=== PATIENT | male | born 1990 | race Caucasian/White ===

== ENCOUNTER 2020-12-25 14:15 | Emergency (ER) | payer BC, SELFPAY ==
--- NOTE | 2020-12-25 | ECG_ITS ---
Test Reason : CHEST PAIN Blood Pressure : / mmHG Vent. Rate : 093 BPM Atrial Rate : 093 BPM P-R Int : 152 ms QRS Dur : 086 ms QT Int : 344 ms P-R-T Axes : 066 034 028 degrees QTc Int : 427 ms Normal sinus rhythm Normal ECG No previous ECGs available Referred By: Generic ED Physician Electronically Signed By:CANELO TAFOYA MD
--- NOTE | ~2020-12-25 | CT_ITS ---
EXAMINATION: CT ANGIOGRAM OF THE CHEST WITH AND WITHOUT CONTRAST (CT PULMONARY ANGIOGRAM FOR PE) CLINICAL INFORMATION: Pain on inspiration. Tachycardia. COMPARISON: Chest x-ray earlier today TECHNIQUE: Prior to contrast administration, noncontrast localization images were obtained. Subsequently, multidetector volumetric imaging was performed from the thoracic inlet to below the diaphragms following the administration of 65 mL Omnipaque 350 intravenous contrast. No contrast reaction reported Sagittal, coronal, and MIP oblique sagittal reformatted images were obtained on the CT workstation, uploaded to PACS, and reviewed. This CT examination was performed using dose optimization techniques as appropriate, variously including the following: *Automated exposure control *Adjustment of mA and/or kV according to patient size (this includes techniques or standardized protocols for targeted exams where dose is matched to indication/reason for exam; i.e. extremities or head) *Use of iterative reconstruction technique Total exam dose-length product 392 mGy-cm FINDINGS: The heart is normal in size. There is no pericardial effusion. No pulmonary arterial filling defect to suggest pulmonary embolus. Normal caliber thoracic aorta. No gross mediastinal lymphadenopathy. No enlarged axillary lymph nodes. Central airways are patent. Lungs are well aerated. There is mild lingular and dependent atelectasis. No lobar consolidation is present. No pleural effusion or pneumothorax. No suspicious pulmonary nodules. Visualized portions of the upper abdomen demonstrate a few small gallstones within an otherwise unremarkable appearing gallbladder. A small hiatal hernia is also noted. No acute osseous abnormality. CT/CT angio chest PE protocol IMPRESSION: 1. No pulmonary embolus. 2. No lobar consolidation, pleural effusion or pneumothorax. 3. Cholelithiasis. VTE: negative
--- NOTE | ~2020-12-25 | XR_ITS ---
EXAMINATION: XR CHEST CLINICAL INFORMATION: Chest pain COMPARISON: None TECHNIQUE: 2 views of the chest were obtained. FINDINGS: No significant abnormality is noted involving the heart, lungs, mediastinum, bony thorax or soft tissues. XR/XR chest 2V IMPRESSION: Unremarkable chest exam
[2020-12-25 15:22] VITALS: BP 137/78; PULSE 90; RESP 16; TEMP 36.4; O2SAT 98; BMI 29.4
[2020-12-25] MEDS: Ibuprofen 600 MG TABLET PO (15:28)
[2020-12-25 15:42] LABS: MANUAL DIFF FLAG NO
[2020-12-25 15:49] LABS: Basophils Percent Auto 0.3 % (0-2); Eosinophils Percent Auto 0.3 % (0-4); Hematocrit 44.9 % (42-52); Hemoglobin 15.2 g/dl (14.0-18.0); Imm Gran Abs Auto 0.03 X10*3/uL (0.00-0.03); Imm Gran Pct Auto 0.3 % (0.0-0.4); Lymphocytes Absolute Auto 1.4 X10*3/uL (1.2-4.9); Lymphocytes Percent Auto 13.6 % (20-40); Mean Corpuscular HGB Conc 33.9 g/dl (31.0-36.0); Mean Corpuscular Volume 91.6 fL (80-98); Mean Platelet Volume 10.1 fL (9.4-12.4); Monocytes Absolute Auto 0.8 X10*3/uL (0.1-1.2); Monocytes Percent Auto 7.9 % (2-11); Neutrophils Absolute Auto 7.9 X10*3/uL (2.0-8.3); Neutrophils Percent Auto 77.6 % (45-73); Platelet Count 222 X10*3/uL (160-400); Red Cell Distribution Width 12.2 % (11.0-16.0); White Blood Count 10.2 X10*3/uL (4.8-10.8)
[2020-12-25 16:19] LABS: Anion Gap 14 (12-20); Blood Urea Nitrogen 20 mg/dL (9-16); Calcium 9.7 mg/dL (8.4-10.2); Carbon Dioxide 24 mmol/L (22-29); Chloride 105 mmol/L (96-108); Creatinine Clr Calc Pharmacy 111.4; Estimated Glomerular Filt Rate > 60; Glucose Random 84 mg/dL (60-115); Potassium 4.2 mmol/L (3.3-5.1); Sodium 139 mmol/L (135-145)
[2020-12-25 16:25] LABS: Troponin-I High Sensitivity < 3.5 ng/L (<3.5-35.0)
--- NOTE | 2020-12-25 18:22 | ED_ITS ---
HPI - Chest Pain General Chief Complaint: Chest Pain Stated Complaint: chest pain Source: patient Mode of arrival: ambulatory Limitations: no limitations History of Present Illness HPI narrative: 30-year-old male with no significant past medical history presents with 2 days of left-sided chest pain, pain on inspiration, shortness of breath on exertion, palpitations, diaphoresis with pain radiating from the lowe r portion of the lung up in to the left shoulder. Has not had pain like this in the past, does not report being on any steroids or hormones, has not taken any flights, and denies any clotting factor deficiencies. He does not report any prior illness or vaccine. States that he also becomes diaphoretic when this pain occurs. Over the past few days the pain has gotten worse and worse, to the point where he feels afraid to take a deep breath in. He does not report any dizziness, lightheadedness, abdominal pain, abdominal distention, dysuria, hematuria, nausea, vomiting, diarrhea constipation, or edema. MD complaint: chest pain Onset (ago): day(s) ( To) Timing of current episode: episodic Prior episodes: No Onset: during rest and during exertion Pain location: left chest Pain radiation: left arm and left shoulder Severity: severe Pain scale (0-10): 10 Quality: tightness and aching Exacerbating factors: exertion and inspiration Associated symptoms: diaphoresis, dyspnea and palpitations Treatment prior to arrival: none Risk Factors Coronary artery disease risk factors: none Thoracic aortic dissection risk factors: none Related Data Previous Rx's Medication Instructions Recorded ibuprofen 600 mg PO Q6H PRN #60 tab 12/25/20 oxycodone-acetaminophen [Endocet] 1 tab PO TID PRN #10 tab 12/25/20 Allergies Allergy/AdvReac Type Severity Reaction Status Date / Time Sulfa (Sulfonamide Allergy Unknown RASH Verified 12/25/20 15:21 Antibiotics) (DOESN'T [SULFA (SULFONAMIDE REALLY ANTIBIOTICS)] KNOW) Review of Systems Review of Systems: Constitutional: No Weight loss, No Fever, No Chills, No Night Sweats, No Fatigue, No Malaise ENT/Mouth: No Hearing loss, No Ear Pain, No Nasal Congestion, No Sinus Pain, No Hoarseness, No sore throat, No Rhinorrhea, No Swallowing Difficulty Eyes: No Eye Pain, No Swelling, No Redness, No Foreign Body, No Discharge, No Vision Changes Cardiovascular: positive Chest Pain, positive SOB, positive Dyspnea on Exertion, positive pain on inspiration, No Orthopnea, No Edema, positive Palpitations Respiratory: No Cough, No Sputum, No Wheezing, No Smoke Exposure, No Dyspnea Gastrointestinal: no Nausea, No Vomiting, No Diarrhea, No abdominal Pain, No Hematochezia, No Melena Genitourinary: No irregular bleeding, No Dysuria, No Urinary Frequency, No Hematuria, No Urinary Incontinence, No Urgency, No Flank Pain, No Urinary Flow Changes, No Hesitancy Musculoskeletal: No joint pain, No Myalgias, No Joint Swelling Skin: No Skin Lesions, No rash Neuro: No Weakness, No Numbness, No Paresthesias, No Loss of Consciousness, No Dizziness, No Headache Psych: No Anxiety/Panic, No Depression, No SI/HI/AH/VH Heme/Lymph: No Bruising, No Bleeding,No Lymphadenopathy Endocrine: No Polyuria, No Polydipsia, No Temperature Intolerance Yes all other systems are reviewed and are negative [facility] Past Medical History Attestation statement: The following information was validated with the patient. Source: old records reviewed Medical History No known health problems Social History Social History Alcohol intake: current Alcohol intake frequency: holidays/special occasions only Patient Tobacco Use Status: Never used Tobacco Use of substances other than those prescribed or required for medical reasons: No Advance Directives: No Advance Directives Information Provided: Yes Physical Exam Vital Signs: Vital Signs: Last Vital Signs Temp 97.5 F 12/25/20 18:49 Pulse 83 12/25/20 21:26 Resp 16 12/25/20 21:26 BP 119/83 12/25/20 21:26 Pulse Ox 99 12/25/20 21:26 Body Mass Index 29.4 Appearance: Alert. Oriented X3. No acute distress. Eyes: Pupils equal, round and reactive to light. ENT: Pharynx normal. Neck: Normal inspection. Neck supple. CVS: Normal heart rate and rhythm. Pulses normal. Respiratory: No respiratory distress. Breath sounds normal. Abdomen: Soft and nontender. Skin: Skin warm and dry. Normal skin color. Normal skin turgor. Extremities: No lower extremity edema. Neuro: No motor deficit. No sensory deficit. Course Course Course Narrative: 30-year-old male presents with 10/10 left-sided chest pain, worsening with inspiration And accompanied with palpitations. labs unremarkable, troponin is negative. EKG is normal sinus. based on patient's presentation, palpitations, shortness of breath, pain on inspiration I will rule out PE. CT PE study is negative for pulmonary embolism however does show c holelithiasis without obstruction. Patient is nontoxic, I advised him to follow-up with outpatient surgery and gave referral to Dr. Lees. Patient verbalizes understanding of and agreement with this plan of care discharge home. MDM - Chest Pain Differential Diagnosis Differential diagnosis: Likely fracture of rib, pneumothorax, atypical chest pain, st elevation myocardial infarction, costochondritis and chest pain Differential diagnosis: PE Medical Records Data Attestation: I reviewed the patient's medical records. Lab Data Attestation: I reviewed the patient's lab results. Result diagrams: 12/25/20 15:34 12/25/20 15:34 Labs: Lab Results 12/25/20 12/25/20 12/25/20 Range/Units 15:34 15:34 15:34 WBC 10.2 (4.8-10.8) X10*3/uL RBC 4.90 (4.60-5.80) X10*6/uL Hgb 15.2 (14.0-18.0) g/dl Hct 44.9 (42-52) % MCV 91.6 (80-98) fL MCH 31.0 (27.0-33.0) pg MCHC 33.9 (31.0-36.0) g/dl RDW 12.2 (11.0-16.0) % Plt Count 222 (160-400) X10*3/uL MPV 10.1 (9.4-12.4) fL Immature Gran % (Auto) 0.3 (0.0-0.4) % Neut % (Auto) 77.6 H (45-73) % Lymph % (Auto) 13.6 L (20-40) % Gordon % (Auto) 7.9 (2-11) % Eos % (Auto) 0.3 (0-4) % Baso % (Auto) 0.3 (0-2) % Lymph # (Auto) 1.4 (1.2-4.9) X10*3/uL Gordon # (Auto) 0.8 (0.1-1.2) X10*3/uL Eos # (Auto) 0.0 (0.0-0.4) X10*3/uL Baso # (Auto) 0.0 (0.0-0.2) X10*3/uL Abs Immat Gran (auto) 0.03 (0.00-0.03) X10*3/uL Absolute Neuts (auto) 7.9 (2.0-8.3) X10*3/uL Absolute Nucleated RBC 0.000 (0.0-0.012) X10*3/uL Nucleated RBC % (auto) 0.0 (0.0-0.2) /100WBC Sodium 139 (135-145) mmol/L Potassium 4.2 (3.3-5.1) mmol/L Chloride 105 (96-108) mmol/L Carbon Dioxide 24 (22-29) mmol/L Anion Gap 14 (12-20) BUN 20 H (9-16) mg/dL Creatinine 1.12 (0.5-1.4) mg/dL Estim Creat Clear Calc 111.4 Estimated GFR > 60 Random Glucose 84 (60-115) mg/dL Calcium 9.7 (8.4-10.2) mg/dL Troponin I High Sens < 3.5 (<3.5-35.0) ng/L Imaging Data chest CT a: Attestation: I personally reviewed and interpreted this imaging study as follows: Radiologist's impression: FINDINGS: The heart is normal in size. There is no pericardial effusion. No pulmonary arterial filling defect to suggest pulmonary embolus. Normal caliber thoracic aorta. No gross mediastinal lymphadenopathy. No enlarged axillary lymph nodes. Central airways are patent. Lungs are well aerated. There is mild lingular and dependent atelectasis. No lobar consolidation is present. No pleural effusion or pneumothorax. No suspicious pulmonary nodules. Visualized portions of the upper abdomen demonstrate a few small gallstones within an otherwise unremarkable appearing gallbladder. A small hiatal hernia is also noted. No acute osseous abnormality. CT/CT angio chest PE protocol IMPRESSION: 1. No pulmonary embolus. 2. No lobar consolidation, pleural effusion or pneumothorax. 3. Cholelithiasis. Chest x-ray: Attestation: I personally reviewed and interpreted this imaging study as follows: Radiologist's impression: EXAMINATION: XR CHEST CLINICAL INFORMATION: Chest pain COMPARISON: None TECHNIQUE: 2 views of the chest were obtained. FINDINGS: No significant abnormality is noted involving the heart, lungs, mediastinum, bony thorax or soft tissues. XR/XR chest 2V IMPRESSION: Unremarkable chest exam ECG Data ECG #1: Attestation: I personally reviewed and interpreted this ECG as follows: ECG interpretation date: 12/25/20 ECG interpretation time: 14:32 Prior ECG tracings: not available for review Interpretation: Vent. rate 93 BPM IN interval 152 ms QRS duration 86 ms QT/QTc 344/427 ms P-R-T axes 66 34 28 Normal sinus rhythm Normal ECG No previous ECGs available Discharge Plan Discharge Clinical Impression: Chest pain, Gallstones Patient Disposition: Home, Self-Care Instructions: Gallstones (ED), Noncardiac Chest Pain (ED) Additional Instructions: you were evaluated for chest pain and pain on inspiration. CT angiogram is negative for pulmonary embolism, however an incidental finding is gallstones. You must follow-up with the surgeon as an outpatient. I provided you a prescription for Percocet. Percocet is a narcotic and has high risk for addiction and abuse. Do not drive or operate machinery while taking this medication. Please use Colace or MiraLax to help soften stools as this medication is also constipating please follow-up with Dr. Lees. Thank you for choosing this emergency department for evaluation. Please follow-up with primary care physician as needed. Return to the emergency depa rtment for any new, concerning, or worsening symptoms. Prescriptions: New oxycodone-acetaminophen [Endocet] 5-325 mg tablet 1 tab PO TID PRN (Reason: pain) Qty: 10 RF: 0 ibuprofen 600 mg tablet 600 mg PO Q6H PRN (Reason: pain) Qty: 60 RF: 0 Referrals: Yohan Lees MD [Physician] - 2 days ( gallstones) Stand Alone Forms: Work/School Release Interventions: ED Discharge Assessment Last Done: 12/25/20 21:27 Discharge Date/Time: 12/25/20 21:28
[2020-12-25 18:49] VITALS: BP 122/62; PULSE 78; RESP 20; TEMP 36.4; O2SAT 98
[2020-12-25] MEDS: iohexoL 350 MG/ML 100 ML INFUS..BTL 65 ML IV (19:15)
[2020-12-25 21:26] VITALS: BP 119/83; PULSE 83; RESP 16; O2SAT 99
== END 2020-12-25 21:28 | disposition home or self-care (01) ==
PROVIDERS: Emergency Provider Emergency Medicine
DX: R07.9 Chest pain, unspecified (principal); K80.20 Calculus of gallbladder without cholecystitis without obstruction
CPT/HCPCS: 36415; 71046; 71275; 80048; 84484; 85025; 93005; 99285; Q9967

== ENCOUNTER → 2021-01-06 14:39 | Outpatient (BNVA) | payer BC, SELFPAY | PROVIDERS: Visit Provider Surgery ==